=== PATIENT | male | born 1980 | race African-American/Black ===

== ENCOUNTER 2020-03-23 02:57 | Emergency (ER) | payer OTHER ==
[2020-03-23] MEDS ORDERED: HYDROmorphone 1 MG/ML 1 ML SYRINGE IM STA (03:12)
[2020-03-23] MEDS ORDERED: IBUPROFEN 800 MG TAB PO STA (03:14)
[2020-03-23] MEDS ORDERED: dexAMETHasone 4 MG TAB PO STA (03:23)
--- NOTE | 2020-03-23 03:24 | ED ---
Back Pain HPI - General Chief Complaint: Back Pain/Injury Stated Complaint: Back Pain Time Seen by Provider: 03/23/20 03:02 Source: patient, RN notes reviewed, old records reviewed Limitations: no limitations - History of Present Illness Initial Comments: Is a 32-year-old male DF for evaluation of 2-3 days of back pain. He. Patient states the pain is not the last few days this point is worried something is wrong on his left leg although he has no bowel or bladder injury or history. No history of back injury or trauma. No recent fevers or other complaints MD Complaint: back pain, back injury -: days(s) (3) Similar Symptoms Previously: No Place: work Radiation: buttocks, left leg Severity: severe Severity scale (1-10): 10 Quality: sharp Consistency: constant Improves With: immobilization Worsens With: movement Context: while lifting, turning/twisting Associated Symptoms: denies other symptoms - Related Data Allergies Allergy/AdvReac Type Severity Reaction Status Date / Time No Known Allergies Allergy Verified 03/23/20 03:06 Review of Systems ROS Statement: Those systems with pertinent positive or pertinent negative responses have been documented in the HPI. ROS Other: All systems not noted in ROS Statement are negative. Past Medical History Past Medical History: No Reported History History of Any Multi-Drug Resistant Organisms: None Reported Past Surgical History: No Surgical Hx Reported Past Psychological History: No Psychological Hx Reported Smoking Status: Current every day smoker Past Alcohol Use History: None Reported Past Drug Use History: None Reported General Exam Limitations: no limitations General appearance: alert, in no apparent distress Head exam: Present: atraumatic, normocephalic, normal inspection Eye exam: Present: normal appearance, PERRL, EOMI. Absent: scleral icterus, conjunctival injection, periorbital swelling ENT exam: Present: normal exam, mucous membranes moist Neck exam: Present: normal inspection. Absent: tenderness, meningismus, lymphadenopathy Respiratory exam: Present: normal lung sounds bilaterally. Absent: respiratory distress, wheezes, rales, rhonchi, stridor Cardiovascular Exam: Present: regular rate, normal rhythm, normal heart sounds. Absent: systolic murmur, diastolic murmur, rubs, gallop, clicks GI/Abdominal exam: Present: soft, normal bowel sounds. Absent: distended, tenderness, guarding, rebound, rigid Extremities exam: Present: normal inspection, full ROM, normal capillary refill. Absent: tenderness, pedal edema, joint swelling, calf tenderness Back exam: Present: normal inspection Neurological exam: Present: alert, oriented X3, CN II-XII intact Psychiatric exam: Present: normal affect, normal mood Skin exam: Present: warm, dry, intact, normal color. Absent: rash Course Vital Signs 03/23/20 03/23/20 03:03 04:40 Temperature 98.5 F 98.6 F Pulse Rate 88 95 Respiratory 18 19 Rate Blood Pressure 153/109 140/111 O2 Sat by Pulse 96 96 Oximetry - Reevaluation(s) Reevaluation #1: 03/23/20 04:07 Medical record is reviewed Patient symptoms are resolved, patient has no significant complaints Patient informed of results and questions answered Patient is okay for discharge Medical Decision Making - Medical Decision Making 89 male DF for evaluation of back pain, pain is improved here in the ER. Patient is able ambulate and can be discharged home Disposition Clinical Impression: Strain of lumbar region, Sciatica, Left lumbar radiculopathy Disposition: HOME SELF-CARE Condition: Good Instructions (If sedation given, give patient instructions): Acute Low Back Pain (ED), Lumbar Radiculopathy (ED) Is patient prescribed a controlled substance at d/c from ED?: No Referrals: Josy Garcia MD [Primary Care Provider] - 1-2 days
--- NOTE | 2020-03-23 04:02 | CT ---
EXAM: CT Abdomen and Pelvis Without Intravenous Contrast CLINICAL HISTORY: ITS.REASON CT Reason: LS pain TECHNIQUE: Axial computed tomography images of the abdomen and pelvis without intravenous contrast. CTDI is 18.97 mGy and DLP is 1094.4 mGy-cm. This CT exam was performed using one or more of the following dose reduction techniques: automated exposure control, adjustment of the mA and/or kV according to patient size, and/or use of iterative reconstruction technique. COMPARISON: No relevant prior studies available. FINDINGS: Limitations: Evaluation of the abdominal viscera is limited without contrast. Lung bases: No acute findings. ABDOMEN: Liver: Mild fatty liver. Gallbladder and bile ducts: Unremarkable. Pancreas: Unremarkable. Spleen: Unremarkable. Adrenals: Unremarkable. Kidneys and ureters: No obstructing stones. No hydronephrosis. Stomach and bowel: Fluid and air in small bowel loops, nonspecific, can be seen with enteritis in the appropriate clinical setting. PELVIS: Appendix: No findings to suggest acute appendicitis. Bladder: Unremarkable. Reproductive: Unremarkable as visualized. ABDOMEN and PELVIS: Intraperitoneal space: No free air. Bones/joints: No acute fracture. Soft tissues: Small fat-containing umbilical and inguinal hernias. Vasculature: Unremarkable. Lymph nodes: Small nonspecific mesenteric and retroperitoneal lymph nodes. IMPRESSION: 1. Fluid and air in small bowel loops, nonspecific, can be seen with enteritis in the appropriate clinical setting. 2. Additional incidental findings, as above.
[2020-03-23] MEDS ORDERED: ACET/COD 300 MG/30 MG STARTER PACK 6 TAB BTL PO STA (04:10)
[2020-03-23] MEDS ORDERED: Acetaminophen-Codeine 300-30mg TAB PO STA (04:10)
[2020-03-23] MEDS ORDERED: IBUPROFEN 600 MG STARTER PACK 4 TAB BTL PO STA (04:10)
[2020-03-23] MEDS ORDERED: diazePAM 5 MG TAB PO STA (04:24)
[2020-03-23 04:48] VITALS: BP 140/111; PULSE 95; RESP 19; TEMP 98.6
== END 2020-03-23 04:40 | disposition home or self-care (01) ==
LOC: EC 02:57
DX: S39.012A Strain of muscle, fascia and tendon of lower back, initial encounter (principal); M54.16 Radiculopathy, lumbar region; M54.42 Lumbago with sciatica, left side; F17.200 Nicotine dependence, unspecified, uncomplicated; X50.0XXA Overexertion from strenuous movement or load, initial encounter; Y92.69 Other specified industrial and construction area as the place of occurrence of the external cause
CPT/HCPCS: 74176; 99284; 96372; J8540; J1170

== ENCOUNTER 2022-08-15 05:34 | Emergency (ER) | payer OTHER ==
[2022-08-15 05:40] VITALS: RESP 18; TEMP 98.4
[2022-08-15] MEDS ORDERED: KETOROLAC 15 MG/ML 1 ML VIAL IVP STA (06:09)
[2022-08-15] MEDS ORDERED: SODIUM CHLORIDE 0.9% 1,000 ML IV STA (06:09)
[2022-08-15] MEDS ORDERED: METOCLOPRAMIDE 5 MG/ML 2 ML VIAL IVP STA (06:09)
[2022-08-15] MEDS ORDERED: diphenhydrAMINE 50 MG/ML 1 ML VIAL IVP STA (06:09)
--- NOTE | 2022-08-15 06:28 | ED ---
Headache HPI - General Chief Complaint: Headache Stated Complaint: Migraine Time Seen by Provider: 08/15/22 06:01 Source: patient, RN notes reviewed Mode of arrival: ambulatory Limitations: no limitations - History of Present Illness Initial Comments: Patient is a 42-year-old -Stateless male presenting to the emergency room with complaints of migraine-like headaches along with right eye associated stabbing pain and mild swelling. He reports the symptoms are similar to his previous migraines. He has been taking Excedrin Migraine without any relief. He has been referred to a neurologist but does not see has never new neurologist until October 2022. He is not currently prescribed any migraine abortive medication or medication to prevent migraines. He denies any other associated symptoms with this headache including any dizziness, weakness, nausea, vomiting, fevers or chills. He denies any other significant past medical history. - Related Data Previous Rx's Medication Instructions Recorded SUMAtriptan succinate [Imitrex] 50 mg PO ONCE 6 Days #6 tablet 08/15/22 Allergies Allergy/AdvReac Type Severity Reaction Status Date / Time No Known Allergies Allergy Verified 07/01/22 08:11 Review of Systems ROS Statement: Those systems with pertinent positive or pertinent negative responses have been documented in the HPI. ROS Other: All systems not noted in ROS Statement are negative. Past Medical History Additional Past Medical History / Comment(s): cluster headaches. History of Any Multi-Drug Resistant Organisms: None Reported Past Surgical History: No Surgical Hx Reported Past Psychological History: No Psychological Hx Reported Smoking Status: Current every day smoker, Former smoker Past Alcohol Use History: None Reported, Occasional General Exam Limitations: no limitations General appearance: alert, in no apparent distress Head exam: Present: atraumatic, normocephalic, normal inspection Eye exam: Present: normal appearance, PERRL, EOMI, periorbital swelling (Trace right upper). Absent: scleral icterus, conjunctival injection ENT exam: Present: normal exam, mucous membranes moist Neck exam: Present: normal inspection, full ROM. Absent: tenderness Respiratory exam: Present: normal lung sounds bilaterally. Absent: respiratory distress, wheezes, rales, rhonchi, stridor Cardiovascular Exam: Present: regular rate, normal rhythm, normal heart sounds. Absent: systolic murmur, diastolic murmur, rubs, gallop, clicks GI/Abdominal exam: Present: soft, normal bowel sounds. Absent: distended, tenderness, guarding, rebound, rigid Extremities exam: Present: normal inspection, full ROM. Absent: pedal edema, joint swelling Back exam: Present: normal inspection, full ROM Neurological exam: Present: alert, oriented X3, CN II-XII intact, other (No focal weakness) Psychiatric exam: Present: normal affect, normal mood Skin exam: Present: warm, dry, intact, normal color. Absent: rash Course Vital Signs 08/15/22 08/15/22 05:36 06:39 Temperature 98.4 F Pulse Rate 110 H 95 Respiratory 18 18 Rate Blood Pressure 138/80 136/84 O2 Sat by Pulse 100 98 Oximetry Medical Decision Making - Medical Decision Making Was pt. sent in by a medical professional or institution ([facility], UNIT COORDINATOR, urgent care, hospital, or senior living...) When possible be specific @ -No Did you speak to anyone other than the patient for history (EMS, parent, family, police, friend...)? What history was obtained from this source @ -No Did you review nursing and triage notes (agree or disagree)? Why? @ -I reviewed and agree with nursing and triage notes Were old charts reviewed (outside hosp., previous admission, EMS record, old EKG, old radiological studies, urgent care reports/EKG's, senior living records)? Report findings @ -No old charts were reviewed Differential Diagnosis (chest pain, altered mental status, abdominal pain women, abdominal pain men, vaginal bleeding, weakness, fever, dyspnea, syncope, headache, dizziness, GI bleed, back pain, seizure, CVA, palpatations, mental h ealth, musculoskeletal)? @ -Differential Headache: Migraine, tension, cluster, carbon monoxide, central venous thrombosis, pension karma temporal arteritis, acute closure glaucoma, intercranial hemorrhage, mastoiditis, sinusitis, head injury, this is not meant to be an all-inclusive list. EKG interpreted by me (3pts min.). @ -None done X-rays interpreted by me (1pt min.). @ -None done CT interpreted by me (1pt min.). @ -None done U/S interpreted by me (1pt. min.). @ -None done What testing was considered but not performed or refused? (CT, X-rays, U/S, labs)? Why? @ -CT of the brain considered but deferred due to known history of headaches with no changes in characteristics or associated symptoms. What meds were considered but not given or refused? Why? @ -None Did you discuss the management of the patient with other professionals (professionals i.e. , PA, UNIT COORDINATOR, lab, RT, psych nurse, social work lecturer, institute director, teacher, licensed mortgage loan officer, case mgr)? Give summary @ -No Was smoking cessation discussed for >3mins.? @ -No Was critical care preformed (if so, how long)? @ -No Were there social determinants of health that impacted care today? How? (Homelessness, low income, unemployed, alcoholism, drug addiction, transportation, low edu. Level, literacy, decrease access to med. care, long term, rehab)? @ -No Was there de-escalation of care discussed even if they declined (Discuss DNR or withdrawal of care, Hospice)? DNR status @ -No What co-morbidities impacted this encounter? (DM, HTN, Smoking, COPD, CAD, Cancer, CVA, ARF, Chemo, Hep., AIDS, mental health diagnosis, sleep apnea, morbid obesity)? @ -History of migraine/cluster headache Was patient admitted / discharged? Hospital course, mention meds given and route, prescriptions, significant lab abnormalities, going to OR and other pertinent info. @ -42-year-old -Stateless male presenting to the emergency room with complaints of intermittent but persistent headache over the last 2 days not responding to migraine Excedrin with associated symptom of right eye pain and visual disturbance consistent with previous migraines. No indication for diagnostic imaging or laboratory studies at this time. Will give migraine cocktail of 1 L fluid bolus, Toradol, Reglan, and Benadryl; will monitor response. Good response to migraine cocktail. Discussed migraine signs and symptoms and avoidance of migraine triggers. Will provide a prescription of migraine abortive medication but advised continued use of Excedrin [id number] as needed for migraines in to only use sumatriptan if severe migraine symptoms persist. Advise continued follow-up with his neurologist. Questions and concerns. Return parameters to the emergency room discussed. Will discharge home in stable condition with improvement of migraine symptoms and a prescription for sumatriptan advising follow-up with his neurologist. Undiagnosed New problem with uncertain prognosis? @ -No Drug Therapy requiring intensive monitoring for toxicity (Heparin, Nitro, Insulin, Cardizem)? @ -No Were any procedures done? @ -No Diagnosis/symptom? @ -Migraine headache Acute, or Chronic, or Acute on Chronic? @ -Acute on chronic Uncomplicated (without systemic symptoms) or Complicated (systemic symptoms)? @ -Uncomplicated Side effects of treatment? @ -No Exacerbation, Progression, or Severe Exacerbation? @ -Exacerbation Poses a threat to life or bodily function? How? (Chest pain, [place], [place], pneumonia, PE, COPD, DKA, ARF, appy, cholecystitis, CVA, Diverticulitis, Homicidal, Suicidal, threat to staff... and all critical care pts) @ -No Case discussed with Dr. Simms. Disposition Clinical Impression: Migraine headache Disposition: HOME SELF-CARE Condition: Stable Instructions (If sedation given, give patient instructions): Migraine Headache (ED) Additional Instructions: Continue to utilize [id number] migraine relief as needed for migraine headaches. For severe migraines utilize prescription of Imitrex to abort migraine. Please keep upcoming appointment with your neurologist. Avoid any known migraine sugars when possible. Please return to the Emergency Department if symptoms worsen or any other concerns. Prescriptions: SUMAtriptan succinate [Imitrex] 50 mg PO ONCE 6 Days #6 tablet Is patient prescribed a controlled substance at d/c from ED?: No Referrals: None,Stated [Primary Care Provider] - 1-2 days Time of Disposition: 07:45
[2022-08-15 08:05] VITALS: BP 130/80; PULSE 80
== END 2022-08-15 07:55 | disposition home or self-care (01) ==
LOC: EC 05:34
DX: G43.909 Migraine, unspecified, not intractable, without status migrainosus (principal); F17.200 Nicotine dependence, unspecified, uncomplicated
CPT/HCPCS: 99283 ×2; 96374 ×2; 96375 ×3; J1200; J2765; J1885

== ENCOUNTER 2023-02-28 11:27 | Emergency (ER) | payer OTHER ==
--- NOTE | 2023-02-28 12:15 | XR ---
EXAMINATION TYPE: XR chest 2V DATE OF EXAM: 02/28/2023 12:12 PM CLINICAL INDICATION:Male, 43 years old with history of cough; COMPARISON: None TECHNIQUE: XR chest 2V Frontal and lateral views of the chest. FINDINGS: Lungs/Pleura: There is no evidence of pleural effusion, focal consolidation, or pneumothorax. Pulmonary vascularity: Unremarkable. Heart/mediastinum: Cardiomediastinal silhouette is unremarkable. Musculoskeletal: No acute osseous pathology. IMPRESSION: Low lung volumes with a generalized hazy appearance which could represent atelectasis.
[2023-02-28 13:11] VITALS: RESP 18
--- NOTE | 2023-02-28 13:48 | ED ---
General Adult HPI - General Chief complaint: Upper Respiratory Infection Stated complaint: Cough Time Seen by Provider: 02/28/23 11:37 Source: patient, RN notes reviewed Mode of arrival: ambulatory - History of Present Illness Initial comments: 43-year-old -Turkish male with no significant past medical history presents emergency Department with a chief complaint of cough. Patient reports cough, generalized body aches and headache for the last week. He reports worsening symptoms over the last 2 days. He denies any known recent sick contacts. Denies any chest pain, palpitations or shortness of breath, nausea or vomiting or abdominal pain. - Related Data Previous Rx's Medication Instructions Recorded SUMAtriptan succinate [Imitrex] 50 mg PO ONCE 6 Days #6 tablet 08/15/22 Benzonatate [Tessalon Perles] 100 mg PO TID PRN 6 Days #24 02/28/23 capsule predniSONE 50 mg PO DAILY #5 tab 02/28/23 Allergies Allergy/AdvReac Type Severity Reaction Status Date / Time No Known Allergies Allergy Verified 02/28/23 11:35 Review of Systems ROS Statement: Those systems with pertinent positive or pertinent negative responses have been documented in the HPI. ROS Other: All systems not noted in ROS Statement are negative. Past Medical History Additional Past Medical History / Comment(s): bhroncitis History of Any Multi-Drug Resistant Organisms: None Reported Past Surgical History: No Surgical Hx Reported Past Psychological History: No Psychological Hx Reported Smoking Status: Current every day smoker, Former smoker Past Alcohol Use History: None Reported, Occasional General Exam - General Exam Comments Initial Comments: General: Alert, in no acute distress Head: atraumatic normocephalic. Eyes PERRL, EOMI intact, mucous membranes moist Respiratory: Lungs clear to auscultation bilaterally Cardiovascular: Heart rate regular rate and rhythm Abdominal: Soft without guarding or rebound Extremities: Normal inspection with full range of motion and normal capillary refill Neuroogic: alert and oriented 3, CN II-XII intact, able to ambulate with steady gait Skin: warm dry and intact with normal color Course Vital Signs 02/28/23 02/28/23 02/28/23 11:32 12:20 13:05 Temperature 98.6 F 98.4 F Pulse Rate 81 80 Respiratory 17 20 18 Rate Blood Pressure 144/99 140/82 O2 Sat by Pulse 96 99 Oximetry 02/28/23 14:03 Temperature 98.2 F Pulse Rate 78 Respiratory 18 Rate Blood Pressure 138/86 O2 Sat by Pulse 99 Oximetry Medical Decision Making - Medical Decision Making Was pt. sent in by a medical professional or institution ([facility], [employer], urgent care, hospital, or fdc...) When possible be specific @ -[No] Did you speak to anyone other than the patient for history (EMS, parent, family, police, friend...)? What history was obtained from this source @ -[No] Did you review nursing and triage notes (agree or disagree)? Why? @ -[I reviewed and agree with nursing and triage notes] Were old charts reviewed (outside hosp., previous admission, EMS record, old EKG, old radiological studies, urgent care reports/EKG's, fdc records)? Report findings @ -[No old charts were reviewed] Differential Diagnosis (chest pain, altered mental status, abdominal pain women, abdominal pain men, vaginal bleeding, weakness, fever, dyspnea, syncope, headache, dizziness, GI bleed, back pain, seizure, CVA, palpatations, mental health, musculoskeletal)? @ -[not applicable] EKG interpreted by me (3pts min.). @ -[As above] X-rays interpreted by me (1pt min.). @ -[None done] CT interpreted by me (1pt min.). @ -[None done] U/S interpreted by me (1pt. min.). @ -[None done] What testing was considered but not performed or refused? (CT, X-rays, U/S, labs)? Why? @ -[None] What meds were considered but not given or refused? Why? @ -[None] Did you discuss the management of the patient with other professionals (professionals i.e. [facility], COFFEE MAKER, lab, RT, psych nurse, transition social worker, vacuum frame operator, teacher, learning and development officer, case advocate)? Give summary @ -[No] Was smoking cessation discussed for >3mins.? @ -[No] Was critical care preformed (if so, how long)? @ -[No] Were there social determinants of health that impacted care today? How? (Homelessness, low income, unemployed, alcoholism, drug addiction, transportation, low edu. Level, literacy, decrease access to med. care, [facility], rehab)? @ -[No] Was there de-escalation of care discussed even if they declined (Discuss DNR or withdrawal of care, Hospice)? DNR status @ -[No] What co-morbidities impacted this encounter? (DM, HTN, Smoking, COPD, CAD, Cancer, CVA, ARF, Chemo, Hep., AIDS, mental health diagnosis, sleep apnea, morbid obesity)? @ -[None] Was patient admitted / discharged? Hospital course, mention meds given and route, prescriptions, significant lab abnormalities, going to OR and other pertinent info. @ -Discharged. This is a 43-year-old -Turkish male who presents the emergency department with upper respiratory symptoms. Patient had a thorough history and physical exam performed. Physical exam is essentially unremarkable. Patient's vital signs are stable. Patient afebrile. He is nontoxic and non- ill appearing. Patient had viral swabs which were negative. Patient provided prescription for prednisone due to symptoms lasting over 7 days. Patient will be discharged in stable condition. Return precautions discussed at length. Case is discussed with, the ED attending physician clinic care Undiagnosed new problem with uncertain prognosis? @ -[No] Drug Therapy requiring intensive monitoring for toxicity (Heparin, Nitro, Insulin, Cardizem)? @ -[No] Were any procedures done? @ -[No] Diagnosis/symptom? @ -Cough Acute, or Chronic, or Acute on Chronic? @ -Acute Uncomplicated (without systemic symptoms) or Complicated (systemic symptoms)? @ -Uncomplicated Side effects of treatment? @ -[No] Exacerbation, Progression, or Severe Exacerbation? @ -[No] Poses a threat to life or bodily function? How? (Chest pain, [place], [place], pneumonia, PE, COPD, DKA, ARF, appy, cholecystitis, CVA, Diverticulitis, Homicidal, Suicidal, threat to staff... and all critical care pts) @ -Low likelihood - Lab Data Lab Results 02/28/23 Range/Units 11:40 Influenza Type A (PCR) Not Detected (Not Detectd) Influenza Type B (PCR) Not Detected (Not Detectd) RSV (PCR) Not Detected (Not Detectd) SARS-CoV-2 (PCR) Not Detected (Not Detectd) Disposition Clinical Impression: Cough Disposition: HOME SELF-CARE Condition: Stable Instructions (If sedation given, give patient instructions): Upper Respiratory Infection (ED) Additional Instructions: Take steroid take tessalon pearls for cough Return to the emergency department if worsening cough or shortness of breath develop Prescriptions: predniSONE 50 mg PO DAILY #5 tab Benzonatate [Tessalon Perles] 100 mg PO TID PRN 6 Days #24 capsule PRN Reason: Cough Is patient prescribed a controlled substance at d/c from ED?: No Referrals: None,Stated [Primary Care Provider] - 1-2 days Forms: Area PCPs Time of Disposition: 13:47
[2023-02-28 14:24] VITALS: BP 138/86; PULSE 78; TEMP 98.2
== END 2023-02-28 14:40 | disposition home or self-care (01) ==
LOC: EC 11:27
DX: R05.9 Cough, unspecified (principal); F17.200 Nicotine dependence, unspecified, uncomplicated; Z20.822 Contact with and (suspected) exposure to COVID-19
CPT/HCPCS: 71046; 87636; 99283